=== PATIENT | male | born 1935 | race Caucasian/White ===

== ENCOUNTER → 2017-05-05 | Outpatient (CLI) | payer MEDICARE, BC ==
[~2017-05-05] MED LIST: Glucosamine H1500 MG PO; Multiple Vitam1 EAC1 PO; NIFE60ER PO; OPTIFLEX-C400 MG PO
== END | disposition home or self-care (01) ==
LOC: PLD 08:28 → LAB SHORT 08:28
DX: D48.5 Neoplasm of uncertain behavior of skin (principal)
CPT/HCPCS: 88305